=== PATIENT | male | born 1950 | race Caucasian/White ===

== ENCOUNTER 2020-04-01 08:02 | Day surgery (SDC) | payer BC ==
[~2020-04-01 08:02] MED LIST: Lactated Ringers 1,000 ML IV SCH; Lidocaine 1%/Sod Bicarbonate in NS 8.4% 1 ML Syringe IDERM PRN; Lidocaine 2% 100 MG/5 ML Syringe ONE; Propofol 200 MG/20 ML SDV ONE; Sodium Chloride 0.9% 10 ML Syringe FLUSH PRN; fentaNYL 100 MCG/2 ML SDV ONE
--- NOTE | 2020-04-01 08:19 | PCM.PREANE ---
Preanesthetic Assessment - Procedure Proposed Procedure: EGD colonoscopy - Anesthesia/Transfusion/Family Hx Anesthesia History: Prior Anesthesia Without Reaction Family History of Anesthesia Reaction: No Transfusion History: No Prior Transfusion(s) - Review of Systems General: No Symptoms Pulmonary: No Symptoms Cardiovascular: No Symptoms Gastrointestinal: No Symptoms Neurological: No Symptoms Other: Reports: None - Physical Assessment NPO Status Date: 04/01/20 NPO Status Time: 04:00 Vital Signs: 151/68 68 97% 16 98.6 Height: 5 ft 10 in Weight: 102.9 kg ASA Class: 2 Mental Status: Alert & Oriented x3 Airway Class: Mallampati = 1 Dentition: Reports: Normal Dentition Thyro-Mental Finger Breadths: 3 Mouth Opening Finger Breadths: 3 ROM/Head Extension: Full Lungs: Clear to Auscultation, Normal Respiratory Effort Cardiovascular: Regular Rate, Regular Rhythm - Allergies Allergies/Adverse Reactions: Allergies Allergy/AdvReac Type Severity Reaction Status Date / Time No Known Allergies Allergy Verified 05/21/14 07:20 - Blood Blood Available: No - Acknowledgements Anesthesia Type Planned: MAC Pt an Appropriate Candidate for the Planned Anesthesia: Yes Alternatives and Risks of Anesthesia Discussed w Pt/Guardian: Yes Pt/Guardian Understands and Agrees with Anesthesia Plan: Yes PreAnesthesia Questionnaire Cardiovascular History: Reports: High Cholesterol, Hypertension Respiratory History: Reports: Sleep Apnea (CPAP) Gastrointestinal History: Reports: GERD Endocrine/Metabolic History: Reports: Obesity/BMI 30+ Oncologic (Cancer) History: Reports: Basal Cell Carcinoma - Past Surgical History HEENT Surgical History: Reports: Tonsillectomy, Other (See Below) - SUBSTANCE USE Smoking Status *Q: Former Smoker (Quit 36 years ago) Tobacco Use Within Last Twelve Months: No Second Hand Smoke Exposure: Yes Days Per Week of Alcohol Use: 0 Recreational Drug Use History: No - CURRENT (IN HOUSE) MEDS Current Meds: Current Medications Lactated Ringer's (Ringers, Lactated) 1,000 mls @ 125 mls/hr IV ASDIRECTED LUCAS Stop: 04/01/20 23:00 Lidocaine/Sodium Bicarbonate (Buffered Lidocaine 1% In Ns 8.4%) 0.25 ml IDERM ONETIME PRN PRN Reason: Prior to IV Start Stop: 04/01/20 18:00 Sodium Chloride (Saline Flush) 10 ml FLUSH ASDIRECTED PRN PRN Reason: Keep Vein Open Stop: 04/01/20 18:00 Discontinued Medications Fentanyl (Sublimaze) Confirm Administered Dose 100 mcg .ROUTE .STK-MED ONE Stop: 04/01/20 07:26 Lidocaine HCl (Xylocaine 2%) Confirm Administered Dose 200 mg .ROUTE .STK-MED ONE Stop: 04/01/20 07:25 Propofol (Diprivan 20 Ml) Confirm Administered Dose 200 mg .ROUTE .STK-MED ONE Stop: 04/01/20 07:25
[2020-04-01] MEDS ORDERED: Propofol 200 MG/20 ML SDV ONE ×6 (09:01→12:10)
[2020-04-01] MEDS ORDERED: Lidocaine 1% 0 ML ONE ×2 (10:34→12:07)
--- NOTE | 2020-04-01 10:48 | PCM.PRNOTE ---
- Free Text/Narrative Note: Date: 04/01/2020 Procedure: diagnostic EGD and screening colonoscopy History: colon polyps on scope 6 years ago, history of reflux esophagitis Endoscopist: Mario Woods MD Findings: Normal duodenum. Linear ulcerations at the gastric body. Small sliding hiatal hernia with some inflammatory changes at distal esophagus. Cecum reached with colonoscope. Prep was good. Single 1 cm polyp in ascending colon. Extensive diverticular disease. Detailed Report: The patient was taken to the endoscopy suite and placed in left lateral decubitus position. Time out was performed and monitored anesthesia care was initiated. A bite block was placed. The endoscope was inserted in the mouth and advanced into the duodenum with ease. The duodenum and gastric antrum appeared normal. With the stomach distended with air, there was apparent linear branch ulcerative changes which did not appear acute or inflamed. A biopsy was obtained with forceps. On retroflexion, there was not much of a hiatal hernia appreciated. This was better appreciated from within the distal esophagus. Proximal to the Z-line there appeared to be some minor inflammatory changes. A biopsy was obtained. The larynx also appeared to have some spotty inflammatory changes. Air was suctioned from the stomach prior to withdrawal of the endoscope. Next, colonoscopy was performed. Visual inspection of the anus revealed patulous anus with minor external hemorrhoidal skin tags. Digital rectal exam was unremarkable. The lubricated colonoscope was then inserted and advanced all the way to the cecum. The ileocecal valve and appendiceal orifice were visualized. The prep was very good. On slow withdrawal of the scope, mucosal surfaces were carefully inspected. A braod-based 1 cm polyp was noted in the ascending colon. This was removed piecemeal with jumbo forceps and remaining tissue base was fulgurated. There was extensive sigmoid diverticulosis. On retroflexion within the rectum no abnormalities were noted. Air was suctioned prior to removal of the scope. The patient tolerated the procedure well.
--- NOTE | 2020-04-01 10:51 | PCM48HPAN ---
Post Anesthesia Note - EVALUATION WITHIN 48HRS OF ANESTHETIC Vital Signs in Normal Range: Yes Patient Participated in Evaluation: Yes Respiratory Function Stable: Yes Airway Patent: Yes Cardiovascular Function Stable: Yes Hydration Status Stable: Yes Pain Control Satisfactory: Yes Nausea and Vomiting Control Satisfactory: Yes Mental Status Recovered: Yes Vital Signs: Last Vital Signs 98/57 99 2l NC 69 16 96.9 Temp 37.0 C 04/01/20 08:05 Pulse 68 04/01/20 08:05 Resp 16 04/01/20 08:05 BP 151/68 H 04/01/20 08:05 Pulse Ox 97 04/01/20 08:05
[2020-04-01] MEDS ORDERED: Lactated Ringers 0 ML ONE (12:05)
== END 2020-04-01 11:59 | disposition home or self-care (01) ==
LOC: JD.SDS 08:02
PROVIDERS: ATTEND Surgery
DX: Z12.11 Encounter for screening for malignant neoplasm of colon (principal); D12.2 Benign neoplasm of ascending colon; K29.50 Unspecified chronic gastritis without bleeding; K31.89 Other diseases of stomach and duodenum; I51.89 Other ill-defined heart diseases; E78.5 Hyperlipidemia, unspecified; I10 Essential (primary) hypertension; G47.33 Obstructive sleep apnea (adult) (pediatric); K21.9 Gastro-esophageal reflux disease without esophagitis; E66.9 Obesity, unspecified; Z68.37 Body mass index [BMI] 37.0-37.9, adult; Z87.891 Personal history of nicotine dependence; Z88.8 Allergy status to other drugs, medicaments and biological substances
CPT/HCPCS: 43239; 45380; J2001; J2704; J3010; J7120; 00813